=== PATIENT | female | born 1950 | race Caucasian/White ===

== ENCOUNTER → 2016-04-12 | Outpatient (REF) | payer OTHER ==
[~2016-04-12] MED LIST: LOSA100T PO
== END ==
LOC: M LAB REF 16:18
PROVIDERS: ATTEND Physician Assistant
DX: L02.211 Cutaneous abscess of abdominal wall (principal)

== ENCOUNTER → 2016-05-19 | Outpatient (REF) | payer OTHER ==
[2016-05-19 17:40] LABS: ANION GAP 10 MEQ/L (8-16); BLOOD UREA NITROGEN 17 MG/DL (7-18); CALCIUM LEVEL 9.9 MG/DL (8.8-10.2); CARBON DIOXIDE LEVEL 23 MEQ/L (21-32); CHLORIDE LEVEL 107 MEQ/L (98-107); CREATININE FOR GFR 0.89 MG/DL (0.55-1.02); GLOMERULAR FILTRATION RATE > 60.0 (>45); GLUCOSE, FASTING 101 MG/DL (80-110); POTASSIUM SERUM 4.3 MEQ/L (3.5-5.1); SODIUM LEVEL 140 MEQ/L (136-145)
== END ==
LOC: M LAB REF 16:17
PROVIDERS: ATTEND Family Medicine
DX: E78.4 Other hyperlipidemia (principal); R73.03 Prediabetes; I10 Essential (primary) hypertension

== ENCOUNTER → 2017-02-28 | Outpatient (REF) | payer OTHER ==
[2017-02-28 19:22] LABS: BASO # 0.1 10^3/uL (0.0-0.2); BASO % 1.3 % (0.0-1.0); EOS # 0.3 10^3/uL (0.0-0.50); EOS % 5.3 % (0.0-3.0); HEMATOCRIT 39.3 % (36.0-47.0); HEMOGLOBIN 13.5 g/dl (12.0-16.0); IMMATURE GRANULOCYTE % 0.2 % (0-0); LYMPH # 2.5 10^3/uL (1.5-4.5); LYMPH % 52.2 % (24.0-44.0); MEAN CORPUSCULAR HEMOGLOBIN 30.9 pg (27.0-33.0); MEAN CORPUSCULAR HGB CONC 34.4 g/dl (32.0-36.5); MEAN CORPUSCULAR VOLUME 89.9 fl (80.0-96.0); MONO # 0.3 10^3/uL (0.0-0.8); MONO % 5.5 % (0.0-5.0); NEUTROPHILS # 1.7 10^3/uL (1.8-7.7); NEUTROPHILS % 35.5 % (36.0-66.0); PLATELET COUNT, AUTOMATED 252 10^3/uL (150-450); RED BLOOD COUNT 4.37 10^6/uL (4.00-5.40); WHITE BLOOD COUNT 4.7 10^3/uL (4.0-10.0)
[2017-02-28 19:43] LABS: ALBUMIN 4.3 GM/DL (3.2-5.2); ALBUMIN/GLOBULIN RATIO 1.39 (1.00-1.93); ALKALINE PHOSPHATASE 189 U/L (45-117); ALT/SGPT 54 U/L (12-78); ANION GAP 8 MEQ/L (8-16); AST/SGOT 42 U/L (7-37); BILIRUBIN,TOTAL 0.9 MG/DL (0.2-1.0); BLOOD UREA NITROGEN 15 MG/DL (7-18); CALCIUM LEVEL 9.1 MG/DL (8.8-10.2); CARBON DIOXIDE LEVEL 29 MEQ/L (21-32); CHLORIDE LEVEL 104 MEQ/L (98-107); CHOLESTEROL LEVEL 121 MG/DL (<200); CHOLESTEROL RISK RATIO 3.457 (<5); GLOMERULAR FILTRATION RATE 48.1 (>45); GLUCOSE, FASTING 99 MG/DL (80-110); HDL CHOLESTEROL 35 MG/DL (>40); LDL CHOLESTEROL 49.6 MG/DL (<100); NON-HDL-C 86 MG/DL; POTASSIUM SERUM 3.9 MEQ/L (3.5-5.1); SODIUM LEVEL 141 MEQ/L (136-145); TOTAL PROTEIN 7.4 GM/DL (6.4-8.2); TRIGLYCERIDES LEVEL 182 MG/DL (<150)
== END ==
LOC: M LAB REF 16:35
DX: E78.4 Other hyperlipidemia (principal); Z00.00 Encounter for general adult medical examination without abnormal findings; I10 Essential (primary) hypertension

== ENCOUNTER → 2018-03-01 | Outpatient (REF) | payer OTHER ==
[~2018-03-01] MED LIST changes: -LOSA100T PO; +LOSA100T8 PO
[2018-03-01 18:15] LABS: BASO % 0.7 % (0.0-1.0); EOS # 0.2 10^3/uL (0.0-0.50); EOS % 4.2 % (0.0-3.0); HEMATOCRIT 43.4 % (36.0-47.0); HEMOGLOBIN 15.1 g/dl (12.0-15.5); LYMPH # 1.9 10^3/uL (1.5-4.5); LYMPH % 34.3 % (24.0-44.0); MEAN CORPUSCULAR HEMOGLOBIN 31.3 pg (27.0-33.0); MEAN CORPUSCULAR HGB CONC 34.8 g/dl (32.0-36.5); MEAN CORPUSCULAR VOLUME 89.9 fl (80.0-96.0); MONO # 0.3 10^3/uL (0.0-0.8); MONO % 6.3 % (0.0-5.0); NEUTROPHILS % 54.3 % (36.0-66.0); PLATELET COUNT, AUTOMATED 295 10^3/uL (150-450); RED BLOOD COUNT 4.83 10^6/uL (4.00-5.40); WHITE BLOOD COUNT 5.4 10^3/uL (4.0-10.0)
[2018-03-01 18:47] LABS: ALBUMIN 3.9 GM/DL (3.2-5.2); ALT/SGPT 29 U/L (12-78); BILIRUBIN,TOTAL 0.7 MG/DL (0.2-1.0); BLOOD UREA NITROGEN 14 MG/DL (7-18); CALCIUM LEVEL 9.4 MG/DL (8.8-10.2); CARBON DIOXIDE LEVEL 27 MEQ/L (21-32); CHLORIDE LEVEL 104 MEQ/L (98-107); CHOLESTEROL LEVEL 148 MG/DL (<200); CHOLESTEROL RISK RATIO 3.083 (<5); CREATININE FOR GFR 0.95 MG/DL (0.55-1.30); GAMMA GLUTAMYLTRANSPEPTIDASE 36 U/L (5-55); GLOMERULAR FILTRATION RATE > 60.0 (>45); GLUCOSE, FASTING 96 MG/DL (70-100); HDL CHOLESTEROL 48 MG/DL (>40); LDL CHOLESTEROL 77 MG/DL (<100); MAGNESIUM LEVEL 1.9 MG/DL (1.8-2.4); NON-HDL-C 100 MG/DL; POTASSIUM SERUM 4.3 MEQ/L (3.5-5.1); PTH INTACT 82.5 PG/ML (18.5-88.0); SODIUM LEVEL 142 MEQ/L (136-145); TOTAL PROTEIN 7.2 GM/DL (6.4-8.2); TRIGLYCERIDES LEVEL 116 MG/DL (<150)
[2018-03-03 10:36] LABS: HEPATITIS B SURFACE ANTIGEN NEGATIVE (NEGATIVE)
[2018-03-03 11:04] LABS: HEPATITIS B CORE ANTIBODY IGM NEGATIVE (NEGATIVE); HEPATITIS C VIRUS ABY INDEX 0.1 INDEX (<0.8)
[2018-03-03 11:06] LABS: HEPATITIS A ANTIBODY IGM NEGATIVE (NEGATIVE)
[2018-03-03 14:26] LABS: STABLE ALKPHOS 20 U/L
[2018-03-03 14:27] LABS: LABILE ALKPHOS 134 U/L
== END ==
LOC: M LAB REF 16:46
PROVIDERS: ATTEND Family Medicine
DX: K76.89 Other specified diseases of liver (principal); N18.2 Chronic kidney disease, stage 2 (mild); Z00.00 Encounter for general adult medical examination without abnormal findings; I10 Essential (primary) hypertension

== ENCOUNTER → 2018-11-08 | Outpatient (REF) | payer MEDICARE, OTHER ==
[2018-11-08 17:29] LABS: ALBUMIN 3.8 GM/DL (3.2-5.2); BILIRUBIN,DIRECT 0.2 MG/DL (0.0-0.2); BILIRUBIN,TOTAL 0.5 MG/DL (0.2-1.0); TOTAL PROTEIN 6.9 GM/DL (6.4-8.2)
[2018-11-08 17:30] LABS: TOTAL 25(OH) VITAMIN D 39.6 NG/ML (30.0-100.0)
== END ==
LOC: M LAB REF 16:42
PROVIDERS: ATTEND Family Medicine
DX: R94.5 Abnormal results of liver function studies (principal); E56.9 Vitamin deficiency, unspecified